=== PATIENT | female | born 1980 | race Asian ===

== ENCOUNTER 2017-07-08 08:47 | Inpatient (IN) | payer OTHER ==
[2017-07-08] MEDS ORDERED: OXYTOCIN 30 UNITS in 0.9% NS 30 UNIT/500 ML INFUS.BAG IVPB ONE (09:31)
[2017-07-08] MEDS: ELECTROLYTE-148 SOLN 1,000 ML IV SCH (09:47)
[2017-07-08 10:30] VITALS: BMI 28.1
[2017-07-08 11:07] LABS: BASO % 0.2 % (0-2.0); HEMATOCRIT 36.9 % (32.4-45.2); HEMOGLOBIN 12.4 GM/dL (10.7-15.3); LYMPH % 18.4 % (8-40); MCHC 33.6 g/dl (32.0-36.0); MEAN CELL VOLUME 86.3 fl (80-96); MEAN PLT VOLUME 8.9 fl (7.5-11.1); MONO % 6.8 % (3.8-10.2); NEUT % 73.6 % (42.8-82.8); PLATELET COUNT 201 K/MM3 (134-434); RBC 4.28 M/mm3 (3.60-5.2); RDW 15.2 % (11.6-15.6)
[2017-07-08] MEDS ORDERED: OXYTOCIN 30 UNITS in 0.9% NS 30 UNIT/500 ML INFUS.BAG IVPB SCH (11:30)
[2017-07-08 11:35] LABS: INR 1.03 (0.82-1.09); PROTHROMBIN TIME (PATIENT) 11.6 SEC (9.7-13.0)
[2017-07-08 11:37] LABS: ACTIVATED PTT 24.8 SECONDS (26.9-34.4); ANION GAP 7 (8-16); BLOOD UREA NITROGEN 6 mg/dL (7-18); CALCIUM 9.2 mg/dL (8.5-10.1); CHLORIDE 106 mmol/L (98-107); CO2 25 mmol/L (21-32); CREATININE 0.3 mg/dL (0.55-1.02); GLUCOSE,RANDOM 72 mg/dL (74-106); POTASSIUM 4.1 mmol/L (3.5-5.1); SODIUM 138 mmol/L (136-145)
--- NOTE | 2017-07-08 14:16 | PN ---
Progress Note (short form) - Note Progress Note: cx 3 cm 70 vx -2, mi, fhr cat 1, irregular contarction, BGM normal
--- NOTE | 2017-07-08 14:25 | HP ---
Past Medical History - Primary Care Physician PCP:: Les Saenz - Admission Chief Complaint: 38 weeks, IDDM, obesity , AMA,admitted for pitocin induction History of Present Illness: 36 yo f g 5 [id number] edc 07/20/17 with hx of IDDM, HTN , referred by M DR Chun for induction of labor, risks, benfit discussed , agreed to be induced with pitocin , risks discussed,normal BGM History Source: Patient Limitations to Obtaining History: No Limitations - Past Medical History Cardiovascular: Yes: HTN, Hyperlipdemia ...: 5 ...Para: 1 ...Term: 1 ...: 0 ...Spon : 0 ...Induced : 3 ...Multiple Gestation: 0 ...LMP: 10/13/16 ... Weeks Gestation by Dates: 38.1 ...EDC by Dates: 07/20/17 Endocrine: Yes: Diabetes Mellitus - Past Surgical History Hx Myomectomy: No Hx Transabdominal Cerclage: No - Smoking History Smoking history: Never smoked Have you smoked in the past 12 months: No Aproximately how many cigarettes per day: 0 - Alcohol/Substance Use Hx Alcohol Use: No - Social History History of Recent Travel: No Home Medications - Allergies Allergies/Adverse Reactions: Allergies Allergy/AdvReac Type Severity Reaction Status Date / Time No Known Allergies Allergy Verified 07/08/17 10:33 - Home Medications Home Medications: Ambulatory Orders Cholecalciferol (Vitamin D3) [Vitamin D] 1,000 unit PO DAILY 11/08/12 Rosuvastatin Calcium [Crestor] 10 mg PO HS 11/08/12 Sitagliptin Phos/Metformin HCl [Janumet Xr 50-1,000 mg Tablet] 1 each PO BID 05/18 Insulin (Novolog) [Novolog Flexpen -] 32 unit SQ TID 07/08/17 Insulin Detemir [Levemir Flextouch] 20 units SQ ONCE 07/08/17 Insulin Detemir [Levemir Flextouch] 48 unit SQ ONCE 07/08/17 Vit 108/Iron/Folic AC [ One Tablet] 1 tablet PO DAILY 07/08/17 Review of Systems - Review of Systems Constitutional: reports: No Symptoms Eyes: reports: No Symptoms HENT: reports: No Symptoms Neck: reports: No Symptoms Cardiovascular: reports: No Symptoms Respiratory: reports: No Symptoms Gastrointestinal: reports: No Symptoms Genitourinary: reports: No Symptoms Breasts: reports: No Symptoms Reported Musculoskeletal: reports: No Symptoms Integumentary: reports: No Symptoms Neurological: reports: No Symptoms Endocrine: reports: No Symptoms Hematology/Lymphatic: reports: No Symptoms Psychiatric: reports: No Symptoms Physical Exam - Maternity Vital Signs: Vital Signs Temperature 98.3 F 07/08/17 12:00 Pulse Rate 99 H 07/08/17 12:00 Respiratory Rate 18 07/08/17 12:00 Blood Pressure 117/69 07/08/17 12:00 O2 Sat by Pulse Oximetry (%) - Abdominal Exam/OB Fundal Height: 40 Number of Fetuses: Single Presentation: Vertex Contractions: No Intensity: Unaware Monitor Mode: External Heart Rate Location: [facility] Category: I Accelerations: Uniform Decelerations: None - Vaginal Exam/OB Vaginal Bleediing: No Speculum Exam: Yes Dilatation (cm): 2 cm Effacement (%): 80 Amniotic Membrane Status: Intact Presentation: Vertex/Position Station: -3 - Physical Exam Musculoskeletal: Yes: WNL Extremities: Yes: WNL Edema: Yes Edema: LLE: Trace, RLE: Trace Deep Tendon Reflex Grade: Normal +2 ...Motor Strength: WNL Psychiatric: Yes: WNL - Labs Lab Results: CBC, BMP 07/08/17 10:24 07/08/17 10:24 Hemorrhage Risk Assessment - Risk Factors Medium Risk Factors: Yes: None High Risk Factors: Yes: None Risk Score: 1 Risk Level: Medium Risk Problem List - Problems (1) with 38 completed weeks gestation Code(s): Z3A.38 - 38 WEEKS GESTATION OF (2) Insulin dependent diabetes mellitus Code(s): E11.9 - TYPE 2 DIABETES MELLITUS WITHOUT COMPLICATIONS; Z79.4 - JAIL (CURRENT) USE OF INSULIN (3) Hypertension Code(s): I10 - ESSENTIAL (PRIMARY) HYPERTENSION Qualifiers: Hypertension type: essential hypertension Qualified Code(s): I10 - Essential (primary) hypertension (4) Advanced maternal age (AMA) in Code(s): XCK0508 - (5) Obesity Code(s): E66.9 - OBESITY, UNSPECIFIED Qualifiers: Obesity type: due to excess calories Assessment/Plan admit, BGM,with regular insulin coverage, heart monitoring pitocin induction
[2017-07-08] MEDS ORDERED: AMPICILLIN SODIUM 2 GM VIAL ONE (14:31)
[2017-07-08] MEDS ORDERED: AMPICILLIN - 2 GM in SODIUM CHLORIDE 100 ML IVPB ONE (14:40)
[2017-07-08] MEDS ORDERED: PROMETHAZINE HCL 25 MG/1 ML VIAL IVPUSH ONE (16:46)
[2017-07-08] MEDS ORDERED: BUTORPHANOL TARTRATE 1 MG/ML VIAL IVPUSH ONE (16:46)
[2017-07-08] MEDS: INSULIN SLIDING SCALE (NOVOLOG) 1 VIAL SQ SCH ×2 (17:02→22:00)
[2017-07-08] MEDS ORDERED: AMPICILLIN SODIUM 1 GM VIAL ONE ×2 (18:07→20:06)
[2017-07-08] MEDS: AMPICILLIN - 1 GM in SODIUM CHLORIDE 100 ML IVPB SCH ×2 (18:20→22:20)
[2017-07-08] MEDS ORDERED: BUTORPHANOL TARTRATE 1 MG/ML VIAL ONE ×2 (20:01)
[2017-07-08] MEDS ORDERED: PROMETHAZINE HCL 25 MG/1 ML VIAL ONE (20:01)
--- NOTE | 2017-07-08 22:04 | PN ---
Progress Note (short form) - Note Progress Note: 5pm cx 3cm 75 vx -2 mi, fhr cat 1, irregular contraction, BGM normal Problem List - Problems (1) with 38 completed weeks gestation Code(s): Z3A.38 - 38 WEEKS GESTATION OF (2) Insulin dependent diabetes mellitus Code(s): E11.9 - TYPE 2 DIABETES MELLITUS WITHOUT COMPLICATIONS; Z79.4 - PRISON (CURRENT) USE OF INSULIN (3) Hypertension Code(s): I10 - ESSENTIAL (PRIMARY) HYPERTENSION Qualifiers: Hypertension type: essential hypertension Qualified Code(s): I10 - Essential (primary) hypertension (4) Advanced maternal age (AMA) in Code(s): [id number] - (5) Obesity Code(s): E66.9 - OBESITY, UNSPECIFIED Qualifiers: Obesity type: due to excess calories
--- NOTE | 2017-07-08 22:05 | PN ---
Progress Note (short form) - Note Progress Note: cx 4 cm 80 vx -2 mi, fhr cat 1, regular contraction, normal BGM Problem List - Problems (1) with 38 completed weeks gestation Code(s): Z3A.38 - 38 WEEKS GESTATION OF (2) Insulin dependent diabetes mellitus Code(s): E11.9 - TYPE 2 DIABETES MELLITUS WITHOUT COMPLICATIONS; Z79.4 - LONGTERM (CURRENT) USE OF INSULIN (3) Hypertension Code(s): I10 - ESSENTIAL (PRIMARY) HYPERTENSION Qualifiers: Hypertension type: essential hypertension Qualified Code(s): I10 - Essential (primary) hypertension (4) Advanced maternal age (AMA) in Code(s): [id number] - (5) Obesity Code(s): E66.9 - OBESITY, UNSPECIFIED Qualifiers: Obesity type: due to excess calories
[2017-07-09] MEDS: AMPICILLIN - 1 GM in SODIUM CHLORIDE 100 ML IVPB SCH ×4 (02:20→18:12)
[2017-07-09] MEDS: ELECTROLYTE-148 SOLN 1,000 ML IV SCH ×2 (04:40→13:10)
[2017-07-09] MEDS: INSULIN SLIDING SCALE (NOVOLOG) 1 VIAL SQ SCH ×4 (07:00→22:00)
[2017-07-09] MEDS ORDERED: LIDOCAINE HCL 1% PRESERVATIVE FREE - 30ML VIAL ONE (07:47)
--- NOTE | 2017-07-09 08:24 | PN ---
Progress Note, Labor Vaginal Exam #3 Labor Exam Date: 07/09/17 Labor Exam Time: 08:30 Heart Rate (range): 130', + accels, no decels Dilatation: 4 Effacement (%): 50 Amniotic Membrane Status: Intact Presentation: Vertex/Position Station: -3 Remarks: 36yo P1 @ 38wks with GDMA2 and HTN being induced as per dr. Chun GBS+ on Ampicillin FS 80's give 2hr of D5W Epidural for better pain management Pitocin 10mU/min consider AROM for augmentation MF status reassuring
[2017-07-09] MEDS ORDERED: DEXTROSE 5%-WATER - 1,000 ML IV SCH ×2 (08:30→10:30)
[2017-07-09] MEDS ORDERED: FENTANYL/BUPIVACAINE/NS/PF - PCEA - 50 ML DISP.SYRIN EP ONE ×2 (08:39→13:55)
[2017-07-09] MEDS ORDERED: BUPIVACAINE HCL/PF 0.25% (2.5MG/ML) 10 ML VIAL ONE (08:44)
[2017-07-09] MEDS ORDERED: FENTANYL/BUPIVACAINE/NS/PF - PCEA - 50 ML DISP.SYRIN EP SCH (09:20)
[2017-07-09] MEDS ORDERED: NALOXONE HCL 0.4 MG/ML VIAL IVPUSH PRN (09:24)
--- NOTE | 2017-07-09 14:13 | PN ---
Progress Note, Labor Vaginal Exam #4 Labor Exam Date: 07/09/17 Labor Exam Time: 14:00 Heart Rate (range): 130, +accels, no decels Dilatation: 6 Effacement (%): 80 Amniotic Membrane Status: Ruptured Presentation: Vertex/Position Station: -2 (Patient is comfortable with epidural MF status reasuring Continue current monitoring)
--- NOTE | 2017-07-09 16:26 | PN ---
Progress Note, Labor Vaginal Exam #5 Labor Exam Date: 07/09/17 Labor Exam Time: 16:00 Heart Rate (range): 150' + accels, no decels Dilatation: 8 Effacement (%): 100 Amniotic Membrane Status: Ruptured Presentation: Vertex/Position Station: -2 Remarks: MF status reassuring continue augmentation of labor
[2017-07-09] MEDS ORDERED: OXYTOCIN 20 UNITS in 0.9% NS 20 UNIT/1,000 ML INFUS.BAG IV ONE ×2 (19:02→21:48)
--- NOTE | 2017-07-09 19:59 | PN ---
Delivery - Delivery Vaginal Delivery: No Problems Type of Anesthesia: Epidural Episiotomy/Laceration: 2nd degree EBL (cc): 400 Delivery, Single - Stages of Labor Date 2nd Stage Initiated: 07/09/17 Date of Delivery: 07/09/17 Date Placenta Delivered: 07/09/17 Placenta: Yes: Spontaneous - Condition of Technical Program Manager/Defect Repairer Glassware Present: No Infant Gender: Female Position: Right, OA - [place] Feeding Plan Initial Plan: Elected not to breastfeed exclusively throughout hospitalization Remarks - Remarks Remarks: Uncomplicated vaginal delivery
[2017-07-09] MEDS ORDERED: BENZOCAINE 20% 57 GM BOTTLE TP PRN (20:00)
[2017-07-09] MEDS ORDERED: METHYLERGONOVINE MALEATE 0.2 MG/1 ML AMP IM PRN (20:00)
[2017-07-09] MEDS ORDERED: BISACODYL 10 MG SUPP.RECT RC PRN (20:00)
[2017-07-09] MEDS ORDERED: OXYTOCIN 20 UNITS in 0.9% NS 20 UNIT/1,000 ML INFUS.BAG IV SCH (20:00)
[2017-07-09] MEDS ORDERED: BENZOCAINE 28 GM HEMORRHOIDAL OINTMENT TP PRN (20:00)
[2017-07-09] MEDS ORDERED: WITCH HAZEL 50% (TUCKS) 40 PAD/JAR PAD TP PRN (20:00)
[2017-07-09] MEDS ORDERED: ACETAMINOPHEN 325 MG TABLET (FP) PO PRN (20:00)
[2017-07-09 20:59] LABS: ARTERIAL BLOOD GAS BASE EXCESS -7.9 meq/l (-2-2)
[2017-07-09 21:09] LABS: VENOUS PH 7.27 (7.32-7.42); VENOUS PO2 37.5 mmHg (28-48)
[2017-07-09 21:11] LABS: ARTERIAL BLD GAS O2 SATURATION 42.7 % (90-98.9)
[2017-07-09 21:12] LABS: ARTERIAL BLOOD GAS PCO2 56.4 mmHg (35-45)
[2017-07-10] MEDS: AMPICILLIN - 1 GM in SODIUM CHLORIDE 100 ML IVPB SCH (04:31)
[2017-07-10] MEDS: INSULIN SLIDING SCALE (NOVOLOG) 1 VIAL SQ SCH ×4 (06:39→22:10)
--- NOTE | 2017-07-10 06:44 | PN ---
Post Progress Note - Subjective Subjective: No complains, voiding, ambulating, tolerating PO Post Day: 1 Type of Delivery: Vital Signs: Vital Signs Temperature 98.3 F 07/10/17 04:00 Pulse Rate 92 H 07/10/17 04:00 Respiratory Rate 20 07/10/17 04:00 Blood Pressure 108/61 07/10/17 04:00 O2 Sat by Pulse Oximetry (%) 99 07/09/17 20:30 Breast Exam: Yes: Soft Uterus: Yes: Fundus Firm Abdomen/GI: Yes: Abdomen soft Lochia: Yes: Rubra Lochia, amount: Moderate Extremities: Yes: Calves non-tender Perineum: Yes: Laceration Activity: Ambulating - Labs Labs: CBC WBC 9.0 K/mm3 (4.0-10.0) D 07/08/17 10:24 RBC 4.28 M/mm3 (3.60-5.2) 07/08/17 10:24 Hgb 12.4 GM/dL (10.7-15.3) 07/08/17 10:24 Hct 36.9 % (32.4-45.2) 07/08/17 10:24 MCV 86.3 fl (80-96) 07/08/17 10:24 MCH 29.0 pg (25.7-33.7) 07/08/17 10:24 MCHC 33.6 g/dl (32.0-36.0) 07/08/17 10:24 RDW 15.2 % (11.6-15.6) D 07/08/17 10:24 Plt Count 201 K/MM3 (134-434) D 07/08/17 10:24 MPV 8.9 fl (7.5-11.1) 07/08/17 10:24 Neutrophils % 73.6 % (42.8-82.8) D 07/08/17 10:24 Lymphocytes % 18.4 % (8-40) D 07/08/17 10:24 Monocytes % 6.8 % (3.8-10.2) 07/08/17 10:24 Eosinophils % 1.0 % (0-4.5) 07/08/17 10:24 Basophils % 0.2 % (0-2.0) 07/08/17 10:24 Assessment/Plan 36yo P2 s/p GDMA2 for GTT 2hr 6wk PP Doing well VSS, Afebrile continue routine care
[2017-07-10 08:41] LABS: BASO % 0.3 % (0-2.0); EOS % 0.4 % (0-4.5); HEMATOCRIT 31.5 % (32.4-45.2); HEMOGLOBIN 10.7 GM/dL (10.7-15.3); LYMPH % 10.4 % (8-40); MCH 29.2 pg (25.7-33.7); MCHC 34.1 g/dl (32.0-36.0); MEAN CELL VOLUME 85.7 fl (80-96); MEAN PLT VOLUME 8.8 fl (7.5-11.1); MONO % 6.1 % (3.8-10.2); NEUT % 82.8 % (42.8-82.8); PLATELET COUNT 201 K/MM3 (134-434); RBC 3.68 M/mm3 (3.60-5.2); RDW 14.9 % (11.6-15.6); WHITE BLOOD COUNT 13.1 K/mm3 (4.0-10.0)
[2017-07-10] MEDS: PRENATAL VITAMINS W/ FOLIC ACID TABLET (FP) PO SCH (09:12)
[2017-07-10] MEDS: FERROUS SO4 325 MG TABLET (FP) PO SCH ×2 (09:12→17:21)
[2017-07-10] MEDS ORDERED: DIPHTH,PERTUSS(ACELL),TET 0.5 ML DISP.SYRIN IM ONE (10:00)
[2017-07-10] MEDS: IBUPROFEN 600 MG TABLET (FP) PO PRN (15:23)
[2017-07-10] MEDS: ELECTROLYTE-148 SOLN 1,000 ML IV SCH (16:56)
--- NOTE | 2017-07-10 17:57 | DS ---
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 FOR METAL Vital Signs: Vital Signs Temperature 98.5 F 07/10/17 16:00 Pulse Rate 100 H 07/10/17 16:00 Respiratory Rate 20 07/10/17 16:00 Blood Pressure 107/65 07/10/17 16:00 O2 Sat by Pulse Oximetry (%) 99 07/09/17 20:30 Constitutional: Yes: Well Nourished Eyes: Yes: WNL, Conjunctiva Clear, EOM Intact HENT: Yes: WNL, Atraumatic, Normocephalic Neck: Yes: WNL, Supple, Trachea Midline Cardiovascular: Yes: WNL, Regular Rate and Rhythm Respiratory: Yes: WNL, Regular, CTA Bilaterally Gastrointestinal: Yes: WNL, Normal Bowel Sounds, Soft Pelvis: Yes: WNL External Genitalia: Yes: Normal ....Post : Yes: Uterus firm, Uterus non-tender Breast(s): Yes: WNL Musculoskeletal: Yes: WNL Extremities: Yes: WNL Integumentary: Yes: WNL Wound/Incision: Yes: Clean/Dry, Well Approximated Neurological: Yes: WNL, Alert, Oriented ...Motor Strength: WNL Psychiatric: Yes: WNL, Alert, Oriented Labs: CBC, BMP 07/10/17 07:45 07/08/17 10:24 Delivery - Delivery Vaginal Delivery: No Problems Type of Anesthesia: Epidural Episiotomy/Laceration: 2nd degree EBL (cc): 400 Delivery, Single - Stages of Labor Date 1st Stage Initiatied: 07/08/17 Time 1st Stage Initiated: 09:00 Date 2nd Stage Initiated: 07/09/17 Time 2nd Stage Initiated: 18:35 Date of Delivery: 07/09/17 Time of Delivery: 19:16 Date Placenta Delivered: 07/10/17 Time Placenta Delivered: 19:18 Placenta: Yes: Spontaneous - Condition of Infant Box Stamper/Transport Corps Officer Present: No Infant Gender: Female Weight: 7 lb 2 oz Position: Right, OA Total Hours ROM (Hrs/Mins): 9Hr/51Mins - 5 Minutes Total Score: 9 1 Minute Total Score: 9 - Feeding Plan Initial Plan: Elected not to breastfeed exclusively throughout hospitalization Remarks - Remarks Remarks: Uncomplicated vaginal delivery Discharge Summary Reason For Visit: LABOR INDUCTION Current Active Problems Advanced maternal age (AMA) in (Acute) Hypertension (Acute) Insulin dependent diabetes mellitus (Acute) Obesity (Acute) with 38 completed weeks gestation (Acute) Procedures: Principal: normal vaginal delivery Hospital Course: Delivered Condition: Good - Instructions Diet, Activity, Other Instructions: Physical activity Resume your normal everyday activity as tolerated no heavy lifting or exercise until seen by your surgeon. You may walk unlimited joyce of and climb stairs. You may resume driving the car when you feel safe and comfortable behind the wheel. No sexual activity as instructed. Wound care If you have a bandage, leave it on, and keep dry for 48-72 hours. After that time discard the outer bandage. If they are tapes on the skin under the out of bandage leave them in place. They will peel off in the next 7 to 10 days. Do Not Peel them off. You may shower the day after surgery. If there are tapes present on the skin, you may shower over them. Diet There are no dietary restrictions. Eat healthy, high-fiber foods. Drink 6 to 8 glasses of liquid each day. This will assist in keeping your bowels are regular. Pain management You may take Tylenol or acetaminophen or Ibuprofen (for example, Motrin, Advil etc.) from my pain prescription medication is ordered should be taken as prescribed for moderate to severe pain. Call MD for any of the following: Severe pain not relieved by medication Fever of 101 or higher Excessive bleeding or drainage on dressing Inability to urinate Referrals: Elpidio Dunbar MD [Staff Physician] - Disposition: HOME - Home Medications Comprehensive Discharge Medication List: Ambulatory Orders Insulin (Novolog) [Novolog Flexpen -] 32 unit SQ TID 07/08/17 Insulin Detemir [Levemir Flextouch] 20 units SQ ONCE 07/08/17 Insulin Detemir [Levemir Flextouch] 48 unit SQ ONCE 07/08/17 Vit 108/Iron/Folic AC [ One Tablet] 1 tablet PO DAILY 07/08/17
[2017-07-10] MEDS ORDERED: SENNOSIDES/DOCUSATE COMBO (SENNA PLUS) TABLET (UD) PO PRN (22:00)
[2017-07-11] MEDS: INSULIN SLIDING SCALE (NOVOLOG) 1 VIAL SQ SCH ×2 (06:25→11:12)
[2017-07-11] MEDS: IBUPROFEN 600 MG TABLET (FP) PO PRN ×2 (06:27→10:44)
--- NOTE | 2017-07-11 08:24 | PN ---
Post Progress Note - Subjective Subjective: No complains, She reports being pregestational DM, on Metformin and Invocana She ambulates, voids, eats regular diet Post Day: 2 Type of Delivery: Vital Signs: Vital Signs Temperature 97.7 F 07/10/17 21:46 Pulse Rate 99 H 07/10/17 21:46 Respiratory Rate 18 07/10/17 21:46 Blood Pressure 112/60 07/10/17 21:46 O2 Sat by Pulse Oximetry (%) 99 07/09/17 20:30 Breast Exam: Yes: Soft Uterus: Yes: Fundus Firm Abdomen/GI: Yes: Abdomen soft Lochia: Yes: Rubra Lochia, amount: Small Perineum: Yes: Laceration (almast no discomfort) Activity: Ambulating - Labs Labs: CBC WBC 13.1 K/mm3 (4.0-10.0) H D 07/10/17 07:45 RBC 3.68 M/mm3 (3.60-5.2) 07/10/17 07:45 Hgb 10.7 GM/dL (10.7-15.3) D 07/10/17 07:45 Hct 31.5 % (32.4-45.2) L 07/10/17 07:45 MCV 85.7 fl (80-96) 07/10/17 07:45 MCH 29.2 pg (25.7-33.7) 07/10/17 07:45 MCHC 34.1 g/dl (32.0-36.0) 07/10/17 07:45 RDW 14.9 % (11.6-15.6) 07/10/17 07:45 Plt Count 201 K/MM3 (134-434) 07/10/17 07:45 MPV 8.8 fl (7.5-11.1) 07/10/17 07:45 Neutrophils % 82.8 % (42.8-82.8) 07/10/17 07:45 Lymphocytes % 10.4 % (8-40) D 07/10/17 07:45 Monocytes % 6.1 % (3.8-10.2) 07/10/17 07:45 Eosinophils % 0.4 % (0-4.5) 07/10/17 07:45 Basophils % 0.3 % (0-2.0) 07/10/17 07:45 Assessment/Plan 36yo P2 s/p Pregestational DM will restart on Metformin 1000mg BID Doing well VSS, Afebrile D/C home NPV x 6 wks RTO 4-6wks
[2017-07-11 08:25] VITALS: BP 118/64; PULSE 88; TEMP 98.3
[2017-07-11] MEDS: FERROUS SO4 325 MG TABLET (FP) PO SCH (10:44)
[2017-07-11] MEDS: PRENATAL VITAMINS W/ FOLIC ACID TABLET (FP) PO SCH (10:44)
== END 2017-07-11 11:00 | disposition home or self-care (01) | DRG 775 ==
LOC: JLDR 08:47 → J3W 07-09 23:30
PROVIDERS: ADMIT Obstetrics & Gynecology; ATTEND Obstetrics & Gynecology
PROC: 10E0XZZ Delivery of Products of Conception, External Approach (ICD-10-PCS; principal; 2017-07-09)
PROC: 0KQM0ZZ Repair Perineum Muscle, Open Approach (ICD-10-PCS; 2017-07-09)
DX: O24.424 Gestational diabetes mellitus in childbirth, insulin controlled (principal); O99.214 Obesity complicating childbirth; E66.9 Obesity, unspecified; O16.4 Unspecified maternal hypertension, complicating childbirth; O99.824 Streptococcus B carrier state complicating childbirth; O70.1 Second degree perineal laceration during delivery; Z3A.38 38 weeks gestation of pregnancy; Z37.0 Single live birth; Z79.4 Long term (current) use of insulin; Z68.28 Body mass index [BMI] 28.0-28.9, adult
CPT/HCPCS: 36415; 36600; 59409; 80048; 82803; 82962; 85025; 85610; 85730; 86593; 86850; 86900; 86901; 87389; 90715

== ENCOUNTER 2018-09-14 06:13 | Day surgery (SDC) | payer OTHER ==
[2018-09-12 16:54] VITALS: BMI 22.3
[2018-09-14] MEDS ORDERED: SUCCINYLCHOLINE CHLORIDE 200 MG/10 ML SYRINGE ONE (07:06)
[2018-09-14] MEDS ORDERED: MIDAZOLAM HCL 2 MG/2 ML SINGLE DOSE VIAL ONE (07:06)
[2018-09-14] MEDS ORDERED: PROPOFOL 20 ML ONE (07:06)
[2018-09-14 07:07] LABS: HCG,QUALITATIVE URINE Negative
[2018-09-14 08:11] LABS: URINE APPEARANCE CLEAR; URINE BILIRUBIN NEGATIVE (NEGATIVE); URINE COLOR YELLOW; URINE GLUCOSE (UA) 3+ (NEGATIVE); URINE KETONE NEGATIVE (NEGATIVE); URINE LEUK ESTERASE NEGATIVE (NEGATIVE); URINE NITRITE NEGATIVE (NEGATIVE); URINE PROTEIN NEGATIVE (NEGATIVE); URINE UROBILINOGEN 0.2 mg/dL (0.2-1.0)
[2018-09-14] MEDS ORDERED: DEXAMETHASONE SOD PHOSPHATE 4 MG/1 ML VIAL ONE (08:18)
[2018-09-14] MEDS ORDERED: BUPIVACAINE HCL/PF (5 MG/ML) 30 ML VIAL IJ ONE (08:32)
[2018-09-14] MEDS ORDERED: LIDOCAINE HCL 1%, 10 MG/ML (50 mL VIAL) IJ ONE (08:32)
[2018-09-14] MEDS ORDERED: ONDANSETRON 4 MG/2 ML VIAL IVPUSH PRN (08:54)
[2018-09-14] MEDS ORDERED: oxyCODONE HCL 5 MG TABLET PO PRN (08:54)
--- NOTE | 2018-09-14 08:55 | OP ---
Operative Note - Note: Operative Date: 09/14/18 Pre-Operative Diagnosis: left middle trigger finger Operation: left middle finger trigger finger release Post-Operative Diagnosis: Same as Pre-op Surgeon: Basil Mendez Cipher Expert: Jeancarlos Montes Anesthesiologist/RETRIEVAL SPECIALIST: Tish Alicea Anesthesia: Local, MAC Estimated Blood Loss (mls): 0 Drains, Volume Out (mls): 0 Blood Volume Replaced (mls): 0 Fluid Volume Replaced (mls): 500 Operative Report Dictated: Yes
--- NOTE | 2018-09-14 08:59 | HP ---
[facility] - Chief Complaint Chief Complaint: left hand pain History of Present Illness: left recurrent middle trigger finger History Source: Patient Limitations to Obtaining History: No Limitations - Past Medical History Allergies/Adverse Reactions: Allergies Allergy/AdvReac Type Severity Reaction Status Date / Time No Known Allergies Allergy Verified 09/12/18 16:42 Cardiovascular: Yes: HTN, Hyperlipdemia ...LMP: 09/08/18 Endocrine: Yes: Diabetes Mellitus - Current Medications Current Medications: Home Medications Medication Instructions Recorded Canagliflozin [Invokana] 300 mg PO DAILY 09/12/18 Cholecalciferol (Vitamin D3) 3,000 unit PO DAILY 09/12/18 [Vitamin D3] Glipizide 2.5 mg PO DAILY 09/12/18 Rosuvastatin Calcium [Crestor] 10 mg PO DAILY 09/12/18 Sitagliptin Phos/Metformin HCl 1 each PO BID 09/12/18 [Janumet 50-1,000 mg Tablet] Hydrocodone/Acetaminophen 1 - 2 tab PO TID PRN #20 tablet 09/14/18 [Hydrocodone-Acetamin 5-325 mg] MDD 6 Satellite Physical Exam - Physical Examination Vital Signs: Vital Signs Period Temp Pulse Resp BP Sys/Evans Pulse Ox Last 24 Hr 98.1 F-98.1 F 78-78 18-18 110-110/67-67 98 General Appearance: Well Nourished ENT: Clear Lung: Clear to auscultation Heart: Regular rate & rhythm Breasts: Soft Abdomen: Soft Extremities: No edema Satellite Impression/Plan - Impression/Plan Impression: left middle trigger finger Operative Procedure: left middle trigger finger release Date to be Performed: 09/14/18
[2018-09-14] MEDS ORDERED: LACTATED RINGERS SOLUTION 1,000 ML IV SCH (09:00)
--- NOTE | 2018-09-14 09:11 | SPEC ---
DATE OF OPERATION: 09/14/2018 PRE-OP DIAGNOSIS: Left middle finger trigger finger. POSTOP DIAGNOSIS: Left middle finger trigger finger. PROCEDURE: Left middle finger trigger finger release. SURGEON: Basil Mendez MD SOCIOLOGY RESEARCH ASSISTANT: Lindsay Pierson MD EXPERIMENTAL FLIGHT TEST MECHANIC: Tish Atwood CRNA ANESTHESIA: MAC anesthesia with local injection of 10 mL of 0.5% Marcaine and 1% Lidocaine mix. DRAINS: None. COMPLICATIONS: None. SPECIMEN: None. FLUID REPLACEMENT: PlasmaLyte, 500 mL. INDICATIONS: This patient is a 37-year-old female with a preoperative diagnosis of a left middle finger recurrent trigger finger. After understanding the potential risks, complications, alternatives, and benefits of surgery versus non-surgical treatment, the patient elected to undergo this procedure. DESCRIPTION OF PROCEDURE: The patient was brought to the operating room, IV was placed, IV sedation was given. One gram of intravenous Ancef given. A tourniquet was applied to the left upper arm and the left upper extremity was prepped and draped in sterile fashion. The entire case was done under 3.8 loupe magnification. A marking pen was utilized to angi out a longitudinal incision in an already existing skin crease at the base of the left middle finger. Then 10 mL of 0.5% Marcaine mixed with 1% Lidocaine was injected in and around the incision. The left upper extremity was elevated, exsanguinated with an Esmarch bandage and the tourniquet inflated to 250 mmHg. A No. 15 scalpel blade was utilized to cut down through the skin. Subcutaneous hemostasis was achieved with the bipolar cautery. Additional dissection was done with Littler scissors until I was able to directly visualize the A1 carito sheath in its entirety. Self-retaining retractors were placed into the wound. A free air elevator was used to free up the tissue on the radial side, the ulnar side distally and proximally under better visualization of A1 carito sheath. Next, using a fresh No. 15 scalpel blade, I excised the central one-third of the A1 carito sheath and passed it off the field as specimen, tendon sheath, left middle finger. I then completed the release, both distally and proximally, and brought the FDS and FDP tendons out through the wound with a Ragnell retractor. There were no abnormal points of compression. I was able to move the left middle finger without the tendons bunching up at all. The area was then copiously irrigated and washed out. I then checked one more time to make sure there were no abnormal points of compression. None were seen and therefore closure was begun. One stitch using 4-0 Vicryl was used in the deep dermal layer. Skin was reapproximated with 4-0 Nylon sutures in a horizontal mattress fashion. The area was then washed and dried, covered with Xeroform gauze, sterile 4x4s, fluffs between the fingers, Webril and Coban. The tourniquet was taken down after a total tourniquet time of 18 minutes. There were no complications during the case. The patient tolerated the procedure well and was brought to the Ambulatory recovery Room in stable condition. LINDSAY PIERSON M.D. [id number]
[2018-09-14 11:14] VITALS: BP 98/68; PULSE 76; TEMP 97.9
== END 2018-09-14 10:30 | disposition home or self-care (01) ==
LOC: JASU-SURG 06:13
PROVIDERS: ATTEND Orthopaedic Surgery
PROC: 0LN80ZZ Release Left Hand Tendon, Open Approach (ICD-10-PCS; principal; 2018-09-14 08:00)
DX: M65.332 Trigger finger, left middle finger (principal)
CPT/HCPCS: 81003; 82962; 84703

== ENCOUNTER 2021-04-22 04:26 | Day surgery (SDC) | payer OTHER ==
[2021-04-18 15:56] VITALS: BMI 24.1
[2021-04-22] MEDS ORDERED: BUPIVACAINE HCL/PF 0.5% (5MG/ML) 10 ML VIAL ONE (11:50)
[2021-04-22] MEDS ORDERED: ACETAMINOPHEN INJECTION 100 ML IVPB ONE (12:00)
[2021-04-22] MEDS ORDERED: MIDAZOLAM HCL 2 MG/2 ML SINGLE DOSE VIAL ONE (12:01)
[2021-04-22] MEDS ORDERED: ONDANSETRON 4 MG/2 ML VIAL IVPUSH PRN (12:14)
[2021-04-22] MEDS ORDERED: oxyCODONE HCL 5 MG TABLET PO PRN (12:14)
[2021-04-22] MEDS ORDERED: IBUPROFEN 800 MG/8 ML IJ IVPB PRN (12:14)
[2021-04-22] MEDS ORDERED: IBUPROFEN 600 MG TABLET (FP) PO PRN (12:14)
[2021-04-22] MEDS ORDERED: ELECTROLYTE-148 SOLN 1,000 ML IV SCH (12:15)
[2021-04-22] MEDS ORDERED: NEOSTIGMINE METHYLSULFATE 0.5 MG/ML - 10 ML MDV ONE (13:09)
[2021-04-22] MEDS ORDERED: SUCCINYLCHOLINE CHLORIDE 200 MG/10 ML SYRINGE ONE (13:30)
[2021-04-22] MEDS ORDERED: LIDOCAINE HCL/PF 2% SDV 5ML VIAL ONE (13:32)
[2021-04-22] MEDS ORDERED: BUPIVACAINE HCL/PF 0.5% (5 MG/ML) 30 ML VIAL IJ ONE (13:34)
[2021-04-22] MEDS ORDERED: SUGAMMADEX SODIUM 200 MG/2 ML VIAL ONE (13:51)
[2021-04-22 15:08] VITALS: TEMP 97.3
[2021-04-22 16:51] VITALS: BP 103/51; PULSE 96
== END 2021-04-22 16:40 | disposition home or self-care (01) ==
LOC: JASU-SURG 04:26
PROVIDERS: ATTEND Obstetrics & Gynecology
PROC: 0UT74ZZ Resection of Bilateral Fallopian Tubes, Percutaneous Endoscopic Approach (ICD-10-PCS; principal; 2021-04-22 11:00)
DX: Z30.2 Encounter for sterilization (principal); N84.1 Polyp of cervix uteri; N73.6 Female pelvic peritoneal adhesions (postinfective); E11.9 Type 2 diabetes mellitus without complications
CPT/HCPCS: 81025; 82962; 88302-TC; 88305-TC; 94760